=== PATIENT | female | born 1995 | race Asian ===

== ENCOUNTER 2018-04-03 11:25 | Outpatient (CLI) | payer BC ==
--- NOTE | 2018-04-03 12:08 | RAD ---
LUMBAR SPINE TWO VIEWS: History: Neck and back pain. Comparison: None. FINDINGS: Five lumbar type vertebral bodies. Vertebral body height is maintained. Disc space height is preserve d. No malalignment on the lateral projection. IMPRESSION: Unremarkable two views lumbar spine. POS: [facility]
--- NOTE | 2018-04-03 13:55 | RAD ---
CERVICAL SPINE SEVEN VIEWS INCLUDING OBLIQUE AND FLEXION AND EXTENSION LATERAL VIEWS: History: 22-year-old female with history of neck pain and back pain for one year. FINDINGS: C1 and odontoid are partially obscured on the AP open mouth view. No significant malalignment. No pre vertebral soft tissue swelling. No evidence for abnormal translation. IMPRESSION: Unremarkable visualized cervical spine. No evidence for fracture or dislocation involving the visuali zed cervical spine. No significant abnormal translation between flexion and extension. POS: [facility]
== END 2018-04-03 11:26 | disposition home or self-care (01) ==
LOC: SCSRAD 11:25
PROVIDERS: ATTEND Internal Medicine Rheumatology
DX: M06.4 Inflammatory polyarthropathy (principal)
CPT/HCPCS: 72052; 72100

== ENCOUNTER 2018-07-10 15:46 | Outpatient (CLI) | payer BC ==
--- NOTE | 2018-07-10 18:08 | RAD ---
RADIOGRAPH CHEST 2 VIEWS: HISTORY: A 23-year-old female with juvenile rheumatoid polyarthritis, M08.3. Bilateral chest pain. FINDINGS: There is no air space density, pulmonary edema, pleural effusion, pneumothorax, or cardiomegaly. The re is a mild lateral curvature of the spine. There is no evidence of pulmonary nodule. Hilar shadow s are bilaterally normal. IMPRESSION: No acute cardiopulmonary findings. deonte [] POS: [facility]
== END 2018-07-10 15:47 | disposition home or self-care (01) ==
LOC: BICRAD 15:46
PROVIDERS: ATTEND Internal Medicine Rheumatology
DX: M08.3 Juvenile rheumatoid polyarthritis (seronegative) (principal)
CPT/HCPCS: 71046

== ENCOUNTER 2018-12-28 10:37 | Outpatient (CLI) | payer BC ==
--- NOTE | 2018-12-28 13:13 | ULT ---
ABDOMEN ULTRASOUND: HISTORY: Right lower quadrant pain. COMPARISON: None. TECHNIQUE: Real-time allen-scale, color Doppler and spectral analysis of the abdomen was performed. FINDINGS: The visualized portions of the aorta and IVC are unremarkable, as well as the pancreas. Hepatic echo texture is normal. The liver measures 14.7 cm in length. The spleen measures 9.1 cm in length. The kidneys are unremarkable without mass, hydronephrosis, or abnormal calcifications. The common bile duct is normal. The portal vein is patent with antegrade flow. No cholelithiasis. The gallbladder is normal. The right kidney measures 9.1 x 4.3 x 3.9 cm, and the left kidney measures 8.8 x 4.4 x 4.6 cm. IMPRESSION: Normal examination. POS: [facility]
== END 2018-12-28 10:38 | disposition home or self-care (01) ==
LOC: BICULT 10:37
PROVIDERS: ATTEND Pediatrics
DX: R10.31 Right lower quadrant pain (principal); N39.0 Urinary tract infection, site not specified
CPT/HCPCS: 76700